=== PATIENT | male | born 1975 | race African-American/Black ===

== ENCOUNTER 2016-10-14 19:25 | Emergency (ER) | payer OTHER ==
[~2016-10-14] VITALS: Ht 175.3 cm; Wt 98.4 kg
[2016-10-14 19:32] VITALS: BP 131/90
[2016-10-14] MEDS ORDERED: FLUORESCEIN SODIUM OPHTH 1 EA STRIP ONE (20:17)
[2016-10-14] MEDS ORDERED: TETRACAINE HCL/PF 0.5% UD 2 ML BOTTLE ONE (20:17)
[2016-10-14] MEDS: FLUORESCEIN SODIUM OPHTH 1 EA STRIP OP ONE (20:33)
[2016-10-14] MEDS: TETRACAINE HCL/PF 0.5% UD 2 ML BOTTLE RIGHTEYE ONE (20:33)
--- NOTE | 2016-10-14 20:39 | NUR ---
PAC JORGE AT BEDSIDE FOR EYE EXAM
== END 2016-10-14 20:55 | disposition home or self-care (01) ==
LOC: ER 19:25
DX: H10.9 Unspecified conjunctivitis (principal); I10 Essential (primary) hypertension; Z88.8 Allergy status to other drugs, medicaments and biological substances
CPT/HCPCS: 99283; A4606; Z7610

== ENCOUNTER 2016-10-21 14:45 | Emergency (ER) | payer OTHER ==
[~2016-10-21] VITALS: Ht 177.8 cm; Wt 97.5 kg
[2016-10-21 14:45] VITALS: BP 130/79
[2016-10-21] MEDS ORDERED: ACETAMINOPHEN ES 500 MG TABLET ONE (15:17)
[2016-10-21] MEDS ORDERED: ACETAMINOPHEN ES 500 MG TABLET PO ONE (15:30)
== END 2016-10-21 15:23 | disposition home or self-care (01) ==
LOC: ER 14:49
DX: S46.911A Strain of unspecified muscle, fascia and tendon at shoulder and upper arm level, right arm, initial encounter (principal); I10 Essential (primary) hypertension; Z90.89 Acquired absence of other organs; Z88.8 Allergy status to other drugs, medicaments and biological substances; X58.XXXA Exposure to other specified factors, initial encounter; Y93.89 Activity, other specified; Y92.89 Other specified places as the place of occurrence of the external cause; Y99.9 Unspecified external cause status
CPT/HCPCS: 99283; A4606; Z7610

== ENCOUNTER 2017-08-03 06:34 | Emergency (ER) | payer OTHER ==
[~2017-08-03] VITALS: Ht 185.4 cm; Wt 97.5 kg
--- NOTE | 2017-08-03 06:34 | NUR ---
PT C/O ABD DISCOMFORT X 1 DAY DENIES N/V/D. A/OX4 VSS NAD WILL CONTINUE TO MONITOR FOR ANY CHANGES.
--- NOTE | 2017-08-03 06:50 | NUR ---
ER MD DIAZ AT BEDSIDE
[2017-08-03] MEDS ORDERED: KETOROLAC TROMETHAMINE INJ 30 MG/ML VIAL IV ONE (07:00)
[2017-08-03] MEDS ORDERED: IV NS 0.9% 1,000 ML BAG IV ONE (07:00)
[2017-08-03] MEDS ORDERED: KETOROLAC TROMETHAMINE 15 MG/ML VIAL ONE (07:05)
--- NOTE | 2017-08-03 07:10 | NUR ---
BLOOD SENT TO LAB WITH [employer]
[2017-08-03 07:15] LABS: BASOPHILS # (AUTO) 0.1 /CMM (0.0-0.2); BASOPHILS % (AUTO) 2.3 % (0.0-2.0); EOSINOPHILS # (AUTO) 0.3 /CMM (0.0-0.7); HEMATOCRIT 47 % (39-51); LYMPHOCYTES # (AUTO) 2.1 /CMM (0.8-4.8); LYMPHOCYTES % (AUTO) 42.1 % (20.0-44.0); MEAN CORPUSCULAR HEMOGLOBIN 33 PG (26.0-33.0); MEAN CORPUSCULAR HGB CONC 35 g/dl (31.0-36.0); MEAN CORPUSCULAR VOLUME 95 fL (80-96); MONOCYTES # (AUTO) 0.7 /CMM (0.1-1.30); MONOCYTES % (AUTO) 13.3 % (2.0-12.0); NEUTROPHILS # (AUTO) 1.7 /CMM (1.8-8.9); NEUTROPHILS % (AUTO) 35.3 % (43.0-81.0); PLATELET COUNT (AUTO) 244 /CMM (150-450); RDW COEFFICIENT OF VARIATION 13.7 (11.5-15.0); WHITE BLOOD COUNT (AUTO) 4.9 K/uL (4.3-11.0)
--- NOTE | 2017-08-03 07:15 | NUR ---
PT OFF TO CT SCAN
[2017-08-03 07:22] LABS: CALCIUM, SERUM 8.9 mg/dL (8.5-10.1); POTASSIUM 3.6 mmol/L (3.5-5.1)
--- NOTE | 2017-08-03 07:24 | NUR ---
PT BACK FROM CT
[2017-08-03 07:30] LABS: ALBUMIN 3.7 g/dL (3.4-5.0); BILIRUBIN,DIRECT 0.1 mg/dL (0.0-0.2); BILIRUBIN,TOTAL 0.6 mg/dL (0.2-1.0); TOTAL PROTEIN, SERUM 7.5 g/dL (6.4-8.2)
--- NOTE | 2017-08-03 08:37 | NUR ---
Patient discharged to home in stable condition. Written and verbal after care instructions given. Patient verbalizes understanding of instruction.IV removed. Catheter intact and site benign. Pressure and 4x4 applied to site. No bleeding noted.
[2017-08-03] MEDS ORDERED: MAG HYDROX/AL HYDROX/SIMETH 30 ML UDC ONE (08:43)
[2017-08-03 08:45] VITALS: BP 140/80
[2017-08-03] MEDS ORDERED: MAG HYDROX/AL HYDROX/SIMETH 30 ML UDC PO ONE (09:00)
== END 2017-08-03 08:47 | disposition home or self-care (01) ==
LOC: ER 06:38
DX: R10.84 Generalized abdominal pain (principal); I10 Essential (primary) hypertension; K76.0 Fatty (change of) liver, not elsewhere classified; N28.9 Disorder of kidney and ureter, unspecified; F10.10 Alcohol abuse, uncomplicated
CPT/HCPCS: 36415; 80048-TC; 80076-TC; 83690-TC; 85025-TC; A4606; J1885; J7030; Z7610

== ENCOUNTER 2019-03-30 07:11 | Emergency (ER) | payer MEDICAID, OTHER ==
[~2019-03-30] VITALS: Ht 175.3 cm; Wt 106.6 kg
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
--- NOTE | 2019-03-30 07:39 | NUR ---
AT BEDSIDE FOR EVAL.
[2019-03-30] MEDS ORDERED: IV NS 0.9% 1,000 ML BAG IV ONE (08:00)
[2019-03-30] MEDS ORDERED: ONDANSETRON HCL/PF 4 MG/2 ML VIAL IVP ONE (08:00)
[2019-03-30] MEDS ORDERED: KETOROLAC TROMETHAMINE INJ 30 MG/ML VIAL IV ONE (08:00)
--- NOTE | 2019-03-30 08:00 | NUR ---
IV LINE ESTABLISHED, BLOOD DRAWN AND SENT TO LAB.
[2019-03-30] MEDS ORDERED: ONDANSETRON HCL/PF 4 MG/2 ML VIAL ONE (08:04)
[2019-03-30] MEDS ORDERED: KETOROLAC TROMETHAMINE 15 MG/ML VIAL ONE (08:04)
[2019-03-30 08:12] LABS: BASOPHILS # (AUTO) 0.1 /CMM (0.0-0.2); BASOPHILS % (AUTO) 1.4 % (0.0-2.0); EOSINOPHILS % (AUTO) 6.2 % (0.0-6.0); HEMATOCRIT 47 % (39-51); HEMOGLOBIN 16.3 g/dL (13.5-17.5); LYMPHOCYTES # (AUTO) 2.1 /CMM (0.8-4.8); LYMPHOCYTES % (AUTO) 34.3 % (20.0-44.0); MEAN CORPUSCULAR HGB CONC 35 g/dl (31.0-36.0); MEAN CORPUSCULAR VOLUME 96 fL (80-96); MONOCYTES # (AUTO) 0.7 /CMM (0.1-1.30); MONOCYTES % (AUTO) 11.5 % (2.0-12.0); NEUTROPHILS # (AUTO) 2.8 /CMM (1.8-8.9); NEUTROPHILS % (AUTO) 46.6 % (43.0-81.0); PLATELET COUNT (AUTO) 259 /CMM (150-450); RED BLOOD CELL COUNT(AUTO) 4.91 MIL/uL (4.5-6.0)
--- NOTE | 2019-03-30 08:12 | NUR ---
PT IS WHEELED TO CT SCAN VIA [facility].
[2019-03-30 08:26] LABS: CALCIUM, SERUM 8.7 mg/dL (8.5-10.1); CARBON DIOXIDE 29 mmol/L (21-32); CHLORIDE 102 mmol/L (98-107); CREATININE 1.3 mg/dL (0.6-1.3); GLUCOSE 116 mg/dL (74-106); SODIUM SERUM 139 mmol/L (136-145); UREA NITROGEN, BLOOD 15 mg/dL (7-18)
[2019-03-30 08:32] LABS: ALANINE AMINOTRANSFERASE 53 U/L (12-78); ALBUMIN 3.7 g/dL (3.4-5.0); ALKALINE PHOSPHATASE 72 U/L (46-116); ASPARTATE AMINOTRANSFERASE 50 U/L (15-37); BILIRUBIN,DIRECT 0.1 mg/dL (0.0-0.2); BILIRUBIN,TOTAL 0.4 mg/dL (0.2-1.0); LIPASE 154 U/L (73-393); TOTAL PROTEIN, SERUM 7.3 g/dL (6.4-8.2)
--- NOTE | 2019-03-30 09:21 | NUR ---
IV removed. Catheter intact and site benign. Pressure and 4x4 applied to site. No bleeding noted. Patient discharged to home in stable condition. Written and verbal after care instructions given. Patient verbalizes understanding of instruction.
[2019-03-30 09:22] VITALS: BP 122/68
== END 2019-03-30 09:22 | disposition home or self-care (01) ==
LOC: ER 07:13
DX: R19.7 Diarrhea, unspecified (principal); R10.32 Left lower quadrant pain; I10 Essential (primary) hypertension; F10.10 Alcohol abuse, uncomplicated; Y90.9 Presence of alcohol in blood, level not specified; Z98.890 Other specified postprocedural states; Z88.8 Allergy status to other drugs, medicaments and biological substances
CPT/HCPCS: 36415; 74176; 80048; 80076; 83690; 84484; 85025; 85730; 96361; 96374; 96375; 99284; J1885; J2405; J7030

== ENCOUNTER 2020-01-13 16:17 | Emergency (ER) | payer MEDICAID, OTHER ==
[~2020-01-13] VITALS: Ht 175.3 cm; Wt 104.3 kg
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
[2020-01-13] MEDS ORDERED: SILVER SULFADIAZINE 50 GM JAR TP STA (16:42)
[2020-01-13] MEDS ORDERED: SILVER SULFADIAZINE CREAM 25 GM TUBE ONE (17:28)
--- NOTE | 2020-01-13 17:40 | NUR ---
WOUND CARE DONE, APPLIED SILVADENE. AND COVERED WITH DRY DRESSING AND BURNET.
--- NOTE | 2020-01-13 18:00 | NUR ---
Patient discharged to home in stable condition. Written and verbal after care instructions given. Patient verbalizes understanding of instruction.
[2020-01-13 18:01] VITALS: BP 148/94
== END 2020-01-13 18:04 | disposition home or self-care (01) ==
LOC: ER 16:27
DX: T22.212A Burn of second degree of left forearm, initial encounter (principal); S20.211A Contusion of right front wall of thorax, initial encounter; S60.211A Contusion of right wrist, initial encounter; I10 Essential (primary) hypertension; Z98.890 Other specified postprocedural states; Z88.8 Allergy status to other drugs, medicaments and biological substances; W18.39XA Other fall on same level, initial encounter; Y93.89 Activity, other specified; Y92.89 Other specified places as the place of occurrence of the external cause; Y99.8 Other external cause status
CPT/HCPCS: 71100-TC

== ENCOUNTER 2020-10-13 17:47 | Emergency (ER) | payer MEDICAID, OTHER ==
[~2020-10-13] VITALS: Ht 175.3 cm; Wt 102.1 kg
[2020-10-13] MEDS ORDERED: TRAMADOL HCL 50 MG TABLET ONE (18:17)
[2020-10-13] MEDS ORDERED: TRAMADOL HCL 50 MG TABLET PO ONE (18:30)
[2020-10-13] MEDS ORDERED: TRAM50TA2 PO (18:33)
[2020-10-13] MEDS ORDERED: ACET-2605 PO (18:33)
--- NOTE | 2020-10-13 18:54 | NUR ---
CRUTCHES PROVIDED. R ANKLE STIRRUP IN PLACED. Patient discharged to home in stable condition. Written and verbal after care instructions given. Patient verbalizes understanding of instruction.
[2020-10-13 18:55] VITALS: BP 146/67
== END 2020-10-13 18:56 | disposition home or self-care (01) ==
LOC: ER 17:47
DX: M25.571 Pain in right ankle and joints of right foot (principal); I10 Essential (primary) hypertension; F10.10 Alcohol abuse, uncomplicated; Y90.9 Presence of alcohol in blood, level not specified; Z98.890 Other specified postprocedural states; Z88.8 Allergy status to other drugs, medicaments and biological substances; Z79.899 Other long term (current) drug therapy
CPT/HCPCS: 73610-TC

== ENCOUNTER 2021-01-24 17:37 | Emergency (ER) | payer MEDICAID ==
[~2021-01-24] VITALS: Ht 175.3 cm; Wt 108.9 kg
[~2021-01-24 17:37] MED LIST: ACET-2605 PO; TRAM50TA2 PO
[2021-01-24 17:50] VITALS: BP 126/74
--- NOTE | 2021-01-24 17:55 | NUR ---
The patient right hand swelling and itching since yesterday. Denies pain. Will continue to monitor the patient.
[2021-01-24] MEDS ORDERED: TRIA15OI2 TP (18:10)
[2021-01-24] MEDS ORDERED: CETI-90 PO (18:10)
[2021-01-24] MEDS ORDERED: PRED20TA PO (18:10)
--- NOTE | 2021-01-24 18:16 | NUR ---
Patient discharged to home in stable condition. Written and verbal after care instructions given. Patient verbalizes understanding of instruction.
== END 2021-01-24 18:17 | disposition home or self-care (01) ==
LOC: ER 17:41
DX: S60.561A Insect bite (nonvenomous) of right hand, initial encounter (principal); T63.481A Toxic effect of venom of other arthropod, accidental (unintentional), initial encounter; I10 Essential (primary) hypertension; Z98.890 Other specified postprocedural states; Z88.8 Allergy status to other drugs, medicaments and biological substances; Z79.899 Other long term (current) drug therapy; Y93.89 Activity, other specified; Y92.89 Other specified places as the place of occurrence of the external cause; Y99.8 Other external cause status

== ENCOUNTER 2021-02-14 13:25 | Emergency (ER) | payer MEDICAID ==
[~2021-02-14] VITALS: Ht 175.3 cm; Wt 104.3 kg
[~2021-02-14 13:25] MED LIST changes: +CETI-90 PO; +PRED20TA PO; +TRIA15OI2 TP
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
[2021-02-14] MEDS ORDERED: KETOROLAC TROMETHAMINE INJ 30 MG/ML VIAL IM ONE (14:30)
[2021-02-14] MEDS ORDERED: KETOROLAC TROMETHAMINE 15 MG/ML VIAL ONE (14:31)
--- NOTE | 2021-02-14 14:45 | NUR ---
PT IS BACK FROM THE CT SCAN.
[2021-02-14] MEDS ORDERED: CYCL5TAB PO (15:07)
[2021-02-14] MEDS ORDERED: IBUP-1957 PO (15:07)
[2021-02-14 15:39] VITALS: BP 135/83
--- NOTE | 2021-02-14 15:39 | NUR ---
Patient discharged to home in stable condition. Written and verbal after care instructions given. Patient verbalizes understanding of instruction.
== END 2021-02-14 15:39 | disposition home or self-care (01) ==
LOC: ER 13:33
DX: S13.4XXA Sprain of ligaments of cervical spine, initial encounter (principal); I10 Essential (primary) hypertension; Z98.890 Other specified postprocedural states; Z88.8 Allergy status to other drugs, medicaments and biological substances; Z79.899 Other long term (current) drug therapy; V49.49XA Driver injured in collision with other motor vehicles in traffic accident, initial encounter; Y93.89 Activity, other specified; Y92.413 State road as the place of occurrence of the external cause; Y99.8 Other external cause status
CPT/HCPCS: 70450; 72125; 96372; 99285; J1885

== ENCOUNTER 2021-03-04 12:50 | Emergency (ER) | payer MEDICAID ==
[~2021-03-04] VITALS: Ht 175.3 cm; Wt 108.9 kg
[~2021-03-04 12:50] MED LIST changes: +CYCL5TAB PO; +IBUP-1957 PO
--- NOTE | 2021-03-04 13:16 | NUR ---
BIBS for swelling to left upper arm for possible insect bite. Rates pain 4/10. Will continue to monitor the patient.
[2021-03-04] MEDS ORDERED: SULF1TAB48 PO (15:21)
[2021-03-04] MEDS ORDERED: IBUP-1955 PO (15:21)
[2021-03-04] MEDS ORDERED: CEPH500C2 PO (15:21)
[2021-03-04 15:33] VITALS: BP 132/81
--- NOTE | 2021-03-04 15:33 | NUR ---
Patient discharged to home in stable condition. Written and verbal after care instructions given. Patient verbalizes understanding of instruction.
== END 2021-03-04 15:34 | disposition home or self-care (01) ==
LOC: ER 12:54
DX: L03.114 Cellulitis of left upper limb (principal); I10 Essential (primary) hypertension; Z98.890 Other specified postprocedural states; Z88.8 Allergy status to other drugs, medicaments and biological substances; Z79.899 Other long term (current) drug therapy

== ENCOUNTER 2021-12-04 16:37 | Emergency (ER) | payer MEDICAID ==
[~2021-12-04 16:37] MED LIST changes: +CEPH500C2 PO; +IBUP-1955 PO; +SULF1TAB48 PO
--- NOTE | 2021-12-04 16:50 | NUR ---
CALLED TO TRIAGE,NO ANSWER
--- NOTE | 2021-12-04 17:04 | NUR ---
CALLED TO TRIAGE,NO ANSWER
[2021-12-04] MEDS ORDERED: SULF1TAB48 PO (19:04)
[2021-12-04] MEDS ORDERED: DIPH25TA62 PO (19:04)
[2021-12-04] MEDS ORDERED: CEPH500C2 PO (19:04)
== END 2021-12-04 17:07 | disposition left against medical advice (07) ==
LOC: ER 16:45
DX: M79.89 Other specified soft tissue disorders (principal); I10 Essential (primary) hypertension; Z88.8 Allergy status to other drugs, medicaments and biological substances; Z79.899 Other long term (current) drug therapy

== ENCOUNTER 2021-12-04 18:25 | Emergency (ER) | payer MEDICAID ==
[~2021-12-04] VITALS: Ht 175.3 cm; Wt 106.6 kg
[2021-12-04 18:38] VITALS: BP 161/99
--- NOTE | 2021-12-04 19:00 | NUR ---
PT SEEN BY DR GONZALES W/ ORDER NOTED.
[2021-12-04] MEDS ORDERED: DIPH25TA62 PO (19:04)
[2021-12-04] MEDS ORDERED: SULF1TAB48 PO (19:04)
[2021-12-04] MEDS ORDERED: CEPH500C2 PO (19:04)
[2021-12-04] MEDS ORDERED: SULFAMETH/TRIMETH 800/160 MG 1 UDTAB TABLET ONE (19:21)
[2021-12-04] MEDS ORDERED: CEPHALEXIN MONOHYDRATE 500 MG CAPSULE PO ONE ×2 (19:21→19:30)
[2021-12-04] MEDS ORDERED: diphenhydrAMINE HCL ELIX 25 MG/10 ML UDC ONE (19:21)
--- NOTE | 2021-12-04 19:27 | NUR ---
ADMINISTERED MEDS INDICATED, TAKEN WELL.
--- NOTE | 2021-12-04 19:29 | NUR ---
Patient discharged to home in stable condition. Written and verbal after care instructions given. Patient verbalizes understanding of instruction.
[2021-12-04] MEDS ORDERED: DIPHENHYDRAMINE HCL 12.5 MG/5 ML UDC PO ONE (19:30)
[2021-12-04] MEDS ORDERED: SULFAMETH/TRIMETH 800/160 MG 1 UDTAB TABLET PO ONE (19:30)
== END 2021-12-04 19:30 | disposition home or self-care (01) ==
LOC: ER 18:30
DX: S60.562A Insect bite (nonvenomous) of left hand, initial encounter (principal); M79.89 Other specified soft tissue disorders; I10 Essential (primary) hypertension; Z88.8 Allergy status to other drugs, medicaments and biological substances; Z79.899 Other long term (current) drug therapy; W57.XXXA Bitten or stung by nonvenomous insect and other nonvenomous arthropods, initial encounter; Y93.89 Activity, other specified; Y92.89 Other specified places as the place of occurrence of the external cause; Y99.8 Other external cause status
CPT/HCPCS: 99284; Q0163 ×2

== ENCOUNTER 2022-05-26 17:03 | Emergency (ER) | payer MEDICAID ==
[~2022-05-26] VITALS: Ht 177.8 cm; Wt 113.4 kg
[~2022-05-26 17:03] MED LIST changes: +DIPH25TA62 PO
[2022-05-26 17:16] VITALS: BP 158/102
[2022-05-26] MEDS ORDERED: KETOROLAC TROMETHAMINE INJ 60 MG/2 ML VIAL IM ONE (18:00)
[2022-05-26] MEDS ORDERED: KETOROLAC TROMETHAMINE INJ 30 MG/ML VIAL ONE (18:01)
--- NOTE | 2022-05-26 18:04 | NUR ---
TORADOL GIVEN IM RIGHT DELTOID, TIM WELL.
--- NOTE | 2022-05-26 18:05 | NUR ---
TECH AT BEDSIDE FOR ULTRASOUND
[2022-05-26] MEDS ORDERED: NAPR-1009 PO (20:05)
== END 2022-05-26 20:34 | disposition home or self-care (01) ==
LOC: ER 17:06
DX: S80.811A Abrasion, right lower leg, initial encounter (principal); M47.816 Spondylosis without myelopathy or radiculopathy, lumbar region; R60.0 Localized edema; I10 Essential (primary) hypertension; Z98.890 Other specified postprocedural states; Z88.8 Allergy status to other drugs, medicaments and biological substances; Z79.899 Other long term (current) drug therapy; W22.8XXA Striking against or struck by other objects, initial encounter; Y93.89 Activity, other specified; Y92.89 Other specified places as the place of occurrence of the external cause; Y99.8 Other external cause status
CPT/HCPCS: 99284; 93971; 96372; 72110; 73502; J1885

== ENCOUNTER 2022-06-05 11:03 | Emergency (ER) | payer MEDICAID ==
[~2022-06-05] VITALS: Ht 175.3 cm; Wt 109.8 kg
[~2022-06-05 11:03] MED LIST changes: +NAPR-1009 PO
[2022-06-05] MEDS ORDERED: LIDOCAINE 1% INJ 50 ML MDV IJ ONE (11:54)
--- NOTE | 2022-06-05 12:22 | NUR ---
IND PERFORMED BY AT BED SIDE
[2022-06-05] MEDS ORDERED: CEPH500C2 PO (13:12)
[2022-06-05] MEDS ORDERED: CEPHALEXIN MONOHYDRATE 500 MG CAPSULE PO ONE ×2 (13:15→13:30)
--- NOTE | 2022-06-05 13:25 | NUR ---
Patient discharged to home in stable condition. Written and verbal after care instructions given. Patient verbalizes understanding of instruction.
--- NOTE | 2022-06-05 13:25 | NUR ---
APPLIED DRESSING ASEPTICALLY ,
[2022-06-05 13:26] VITALS: BP 112/78
== END 2022-06-05 13:26 | disposition home or self-care (01) ==
LOC: ER 11:15
DX: S80.11XA Contusion of right lower leg, initial encounter (principal); I10 Essential (primary) hypertension; Z88.8 Allergy status to other drugs, medicaments and biological substances; Z79.899 Other long term (current) drug therapy; W22.8XXA Striking against or struck by other objects, initial encounter; Y93.89 Activity, other specified; Y92.89 Other specified places as the place of occurrence of the external cause; Y99.8 Other external cause status
CPT/HCPCS: 10140; 99284; 73590; J3490; A6403 ×2

== ENCOUNTER 2022-09-01 16:29 | Emergency (ER) | payer MEDICAID ==
[~2022-09-01] VITALS: Ht 175.3 cm; Wt 95.3 kg
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
[2022-09-01] MEDS ORDERED: CYCLOBENZAPRINE 10 MG TABLET PO ONE (17:00)
[2022-09-01] MEDS ORDERED: KETOROLAC TROMETHAMINE INJ 60 MG/2 ML VIAL IM ONE (17:00)
[2022-09-01] MEDS ORDERED: KETOROLAC TROMETHAMINE INJ 30 MG/ML VIAL ONE (17:21)
[2022-09-01] MEDS ORDERED: CYCLOBENZAPRINE 10 MG TABLET ONE (17:21)
--- NOTE | 2022-09-01 17:28 | NUR ---
medicated as ordered
[2022-09-01] MEDS ORDERED: CYCL10TA9 PO (17:39)
[2022-09-01] MEDS ORDERED: NAPR500T6 PO (17:39)
--- NOTE | 2022-09-01 17:50 | NUR ---
Patient discharged to home in stable condition. Written and verbal after care instructions given. Patient verbalizes understanding of instruction.
[2022-09-01 17:51] VITALS: BP 136/99
== END 2022-09-01 17:51 | disposition home or self-care (01) ==
LOC: ER 16:40
DX: S13.4XXA Sprain of ligaments of cervical spine, initial encounter (principal); S39.012A Strain of muscle, fascia and tendon of lower back, initial encounter; I10 Essential (primary) hypertension; Z88.8 Allergy status to other drugs, medicaments and biological substances; Z79.899 Other long term (current) drug therapy; V43.52XA Car driver injured in collision with other type car in traffic accident, initial encounter; Y93.89 Activity, other specified; Y92.89 Other specified places as the place of occurrence of the external cause; Y99.8 Other external cause status
CPT/HCPCS: 99284; 96372; 72040; 72100; J1885

== ENCOUNTER 2022-10-27 20:58 | Emergency (ER) | payer MEDICAID ==
[~2022-10-27] VITALS: Ht 177.8 cm; Wt 108.9 kg
[~2022-10-27 20:58] MED LIST changes: +CYCL10TA9 PO; +NAPR500T6 PO
--- NOTE | 2022-10-27 22:50 | NUR ---
BIBS FOR C/O BILATERAL PAIN ON THE SOLE OF FEET FOR 6 MONTHS. PATIENT IS AOX4. ABLE TO MAKE NEEDS KNOWN. PLACED COMFORTABLY IN BED.
[2022-10-27] MEDS ORDERED: NAPR-1009 PO (23:56)
--- NOTE | 2022-10-28 00:11 | NUR ---
Patient discharged to home in stable condition. Written and verbal after care instructions given. Patient verbalizes understanding of instruction.
[2022-10-28 00:12] VITALS: BP 121/73
== END 2022-10-28 00:12 | disposition home or self-care (01) ==
LOC: ER 20:59
DX: B07.0 Plantar wart (principal); M72.2 Plantar fascial fibromatosis; I10 Essential (primary) hypertension; Z88.8 Allergy status to other drugs, medicaments and biological substances

== ENCOUNTER 2023-07-05 13:55 | Emergency (ER) | payer MEDICAID | END 2023-07-05 14:47 | disposition left against medical advice (07) | LOC: ER 14:22 | DX: M25.561 Pain in right knee (principal); Z53.21 Procedure and treatment not carried out due to patient leaving prior to being seen by health care provider ==

== ENCOUNTER 2023-07-05 15:26 | Emergency (ER) | payer MEDICAID ==
[~2023-07-05] VITALS: Ht 175.3 cm; Wt 108.9 kg
[2023-07-05 15:36] VITALS: BP 168/107; TEMP 98.5; O2SAT 98
== END 2023-07-05 20:16 | disposition left against medical advice (07) ==
LOC: ER 15:28
DX: M25.561 Pain in right knee (principal); Z53.21 Procedure and treatment not carried out due to patient leaving prior to being seen by health care provider

== ENCOUNTER 2024-07-05 19:08 | Emergency (ER) | payer MEDICAID ==
[~2024-07-05] VITALS: Ht 175.3 cm; Wt 108.9 kg
[2024-07-05 19:34] VITALS: BP 157/104; TEMP 98.8; O2SAT 96
[2024-07-05] MEDS ORDERED: CIPR7.5D9 LEFT EAR (19:46)
== END 2024-07-05 19:54 | disposition home or self-care (01) ==
LOC: ER 19:11
DX: H60.92 Unspecified otitis externa, left ear (principal); I10 Essential (primary) hypertension; Z79.1 Long term (current) use of non-steroidal anti-inflammatories (NSAID); Z79.52 Long term (current) use of systemic steroids; Z88.8 Allergy status to other drugs, medicaments and biological substances

== ENCOUNTER 2024-12-03 07:04 | Emergency (ER) | payer MEDICAID ==
[~2024-12-03] VITALS: Ht 177.8 cm; Wt 104.3 kg
[~2024-12-03 07:04] MED LIST changes: +CIPR7.5D9 LEFT EAR
[2024-12-03 07:36] VITALS: BP 162/114; TEMP 97.9; O2SAT 94
[2024-12-03] MEDS ORDERED: IBUPROFEN 600 MG TABLET ONE (07:47)
[2024-12-03] MEDS: IBUPROFEN 600 MG TABLET PO ONE (07:50)
[2024-12-03] MEDS ORDERED: NAPR-1164 PO (08:32)
== END 2024-12-03 08:51 | disposition home or self-care (01) ==
LOC: ER 07:19
DX: S83.8X2A Sprain of other specified parts of left knee, initial encounter (principal); I10 Essential (primary) hypertension; Z79.1 Long term (current) use of non-steroidal anti-inflammatories (NSAID); Z79.52 Long term (current) use of systemic steroids; Z88.8 Allergy status to other drugs, medicaments and biological substances; Z79.899 Other long term (current) drug therapy; X58.XXXA Exposure to other specified factors, initial encounter; Y93.89 Activity, other specified; Y92.89 Other specified places as the place of occurrence of the external cause; Y99.8 Other external cause status
CPT/HCPCS: 73564-TC

== ENCOUNTER 2024-12-06 00:25 | Emergency (ER) | payer MEDICAID ==
[~2024-12-06] VITALS: Ht 180.3 cm; Wt 99.8 kg
[~2024-12-06 00:25] MED LIST changes: +NAPR-1164 PO
[2024-12-06] MEDS ORDERED: IBUPROFEN 400 MG TABLET ONE (01:01)
[2024-12-06] MEDS: IBUPROFEN 400 MG TABLET PO ONE (01:03)
[2024-12-06 01:53] VITALS: BP 165/89; TEMP 98.7; O2SAT 98
== END 2024-12-06 01:53 | disposition home or self-care (01) ==
LOC: ER 00:27
DX: S90.32XA Contusion of left foot, initial encounter (principal); I10 Essential (primary) hypertension; Z79.1 Long term (current) use of non-steroidal anti-inflammatories (NSAID); Z79.52 Long term (current) use of systemic steroids; Z88.8 Allergy status to other drugs, medicaments and biological substances; X58.XXXA Exposure to other specified factors, initial encounter; Y93.89 Activity, other specified; Y92.89 Other specified places as the place of occurrence of the external cause; Y99.8 Other external cause status
CPT/HCPCS: 73630-TC

== ENCOUNTER 2025-01-04 16:13 | Emergency (ER) | payer MEDICAID ==
[~2025-01-04] VITALS: Ht 175.3 cm; Wt 106.6 kg
[2025-01-04 16:55] LABS: PLATELET COUNT (AUTO) 232 K/uL (150-450); RED BLOOD CELL COUNT(AUTO) 5.00 MIL/uL (4.5-6.0); RED CELL DISTRIBUTION WIDTH 14.2 % (11.5-15.0); WHITE BLOOD COUNT (AUTO) 5.7 K/uL (4.3-11.0)
[2025-01-04 17:04] LABS: CALCIUM, SERUM 9.1 mg/dL (8.5-10.1); CREATININE 1.3 mg/dL (0.6-1.3); SODIUM SERUM 140 mmol/L (136-145); UREA NITROGEN, BLOOD 22 mg/dL (7-18)
[2025-01-04 17:17] LABS: ASPARTATE AMINOTRANSFERASE 56 U/L (15-37); NT-PRO BNP 41 pg/mL (0-125); TOTAL PROTEIN, SERUM 7.3 g/dL (6.4-8.2)
[2025-01-04 20:18] VITALS: BP 138/85; TEMP 98.2; O2SAT 98
== END 2025-01-04 20:18 | disposition home or self-care (01) ==
LOC: ER 16:13
DX: R07.9 Chest pain, unspecified (principal); R06.02 Shortness of breath; I10 Essential (primary) hypertension; Z79.1 Long term (current) use of non-steroidal anti-inflammatories (NSAID); Z79.52 Long term (current) use of systemic steroids; Z88.8 Allergy status to other drugs, medicaments and biological substances; Z79.899 Other long term (current) drug therapy
CPT/HCPCS: 36415; 71045-TC; 80048-TC; 80076-TC; 83880; 84484-TC; 85025-TC